=== PATIENT | female | born 1985 ===

== ENCOUNTER 2025-03-25 22:19 | Emergency (ER) | payer MEDICAID, SELFPAY ==
--- NOTE | 2025-03-25 | ECG_ITS ---
Test Reason : AMS Blood Pressure : */* mmHG Vent. Rate : 64 BPM Atrial Rate : 64 BPM P-R Int : 132 ms QRS Dur : 82 ms QT Int : 432 ms P-R-T Axes : 5 35 44 degrees QTcB Int : 445 ms Normal sinus rhythm Normal ECG No previous ECGs available Referred By: Generic ED Physician Electronically Signed By: JIM HIRSCH MD
--- NOTE | ~2025-03-25 | US_ITS ---
EXAMINATION: US OBSTETRICAL ULTRASOUND CLINICAL INFORMATION: Unclear dates COMPARISON: None available. LMP: Unknown. TECHNIQUE: Real-time transabdominal obstetric pelvic ultrasound performed using grayscale and color Doppler technique. FINDINGS: There is a single intrauterine gestational sac with visible yolk sac, embryo/fetus, and cardiac activity. There is no significant subchorionic hemorrhage or hematoma. There is a 2.3 cm heterogeneous isoechoic soft tissue lesion within the myometrium. HR: 152 beats per minute. CRL (crown rump length): 1.76 cm (8 weeks and 2 days +/- 4 days). CESARIO (estimated date of delivery): 11/03/2025 +/- 4 days. MATERNAL ADNEXA: The right maternal ovary measures 3 x 3 x 2 cm. Volume: 10 cc. The left maternal ovary measures 3 x 2 x 3 cm. Volume: 8 cc. No gross solid or cystic lesion in either adnexa. Normal flow on color Doppler interrogation to the ovaries. No maternal pelvic ascites. US/US OB <= 14 weeks fetus IMPRESSION: 1. Single intrauterine gestation with ultrasound gestational age of 8 weeks and 2 days +/- 4 days. 2. Estimated date of delivery is 11/03/2025 +/- 4 days. 3. 2.3 cm uterine fibroid. Electronically signed by: Kevan Walsh MD 03/26/2025 12:18 PM EDT
[2025-03-25 22:22] VITALS: BP 111/46; BP 120/76; PULSE 62; PULSE 63; RESP 17; TEMP 37; O2SAT 94; O2SAT 97; BMI 26.0
[2025-03-25 22:37] VITALS: BP 111/46; PULSE 63; RESP 17; TEMP 37; O2SAT 97
[2025-03-25 22:38] LABS: MANUAL DIFF FLAG NO
[2025-03-25 22:38] LABS: Glucose, Whole Blood 82 mg/dL (60-115)
[2025-03-25 22:42] LABS: Hematocrit 37.2 % (37.0-47.0); Hemoglobin 13.1 g/dl (12.0-16.0); Imm Gran Abs Auto 0.03 X10*3/uL (0.00-0.03); Imm Gran Pct Auto 0.3 % (0.0-0.4); Lymphocytes Absolute Auto 2.5 X10*3/uL (1.2-4.9); Mean Corpuscular HGB Conc 35.2 g/dl (31.0-35.0); Mean Corpuscular Hemoglobin 30.1 pg (27.0-33.0); Mean Corpuscular Volume 85.5 fL (80.0-98.0); NRBC Abs Auto 0.000 X10*3/uL (0.0-0.012); NRBC Pct Auto 0.0 /100WBC (0.0-0.2); Platelet Count 335 X10*3/uL (160-400); Red Blood Count 4.35 X10*6/uL (4.20-5.50); White Blood Count 9.9 X10*3/uL (4.8-10.8)
--- NOTE | 2025-03-25 22:59 | PC.NURSE ---
pt biba, catatonic state. This started a few days ago and she was informed at [facility] she was 2 weeks . Spouse at bedside giving history as pt is unable to verbally respond. Pt responds to verbal commands, able to open mouth for oral temperature. Spouse states this has never happened with previous pregnancies. Pt respirations even and unlabored.
[2025-03-25 23:04] LABS: Alanine Aminotransferase 19 U/L (0-31); Albumin Level 3.9 g/dL (3.5-5.0); Alkaline Phosphatase 50 U/L (39-117); Anion Gap 12 (12-20); Aspartate Amino Transferase 22 U/L (5-31); Blood Urea Nitrogen 8 mg/dL (9-16); Calcium 8.3 mg/dL (8.4-10.2); Carbon Dioxide 19 mmol/L (22-29); Chloride 110 mmol/L (96-108); Creatinine Clr Calc Pharmacy 130.4; Estimated Glomerular Filt Rate > 60; Lipase 20 U/L (8-78); Magnesium 1.8 mg/dL (1.6-2.6); Potassium 3.2 mmol/L (3.3-5.1); Sodium 138 mmol/L (135-145); Total Protein 6.7 g/dL (6.5-8.0)
--- OUTSIDE RECORDS SUMMARY | 2025-03-25 23:12 | XMS_ITS | Encounter Summary ---
Author Organization [employer] [facility] Address [address] [facility] [address] [place] [address] Care Team Providers Care Hand Glove Cleaner Name Role Phone Nannette Canales Primary Care Provider Unavail able Nannette Canales Unavailable Unavailable Mitch Cespedes Unassigned Primary Care Provider U Fritz Castro MD Primary Care Provider [phone] Encounter Details Date Type Department Care Team (Late st Contact Info) Description 09/12/2022 Abstract Sheyla [facility] [address] [place] [address] Dental, Provider, DDS Social History Tobacco Use Types Packs/Day Years Used Date Smoking Tobacco: Never Assessed Comments Unknown Sex and Gender Information Value Date Recorded Sex Assigned at Female 07/28/2022 9:50 AM EDT Legal Sex Female 6:21 PM EDT Gender Identity Female 11/09/2022 11:05 AM EST Sexual Orientation Straight 11/09/2022 11 :05 AM EST documented as of this encounter Plan of Treatment Upcoming Encounters Date Type Department Care Team (Late st Contact Info) Description 04/17/2025 9:00 AM EDT Office Visit [address] [address] Fritz De Anda MD [address] [place] [id number] documented as of this encounter Visit Diagnoses Not on filedocumented in this encounter Care Teams Hand Glove Cleaner Relationship Specialty Start Date End Date Nannette Canales FNP PCP - General Family Medicine 07/22/22 12/26/22 Mitch Cespedes Unassigned PCP - General Family Medicine 12/27/22 04/10/23 Fritz De Anda MD PCP - General Internal Medicine 04/11/23 Nannette Canales FNP Family Medicine 07/22/22 12/26/22 documented as of this encounter
[2025-03-25] MEDS: Lactated Ringers 1,000 ML 999 ML IV (23:15)
[2025-03-25] MEDS: Potassium Chloride/H20 10 MEQ/100 ML PIGGYBACK 100 MEQ IV (23:15)
--- NOTE | 2025-03-25 23:22 | ED_ITS ---
HPI - Psych General Chief Complaint: Altered Mental Status Stated Complaint: Catatonic state, 2 months preg Time Seen by Provider: 03/25/25 22:57 Source: family, EMS and old records reviewed Mode of arrival: EMS Limitations: other (patient is not speaking much yes or nods no ) History of Present Illness ED Provider: JAQUAN HPI Narrative: 39 yo female with no sig PMH has had anxiety/depression for past 2 years due to issues with oldest daughter it has worsened this week and she has had two episodes of catatonia she was seen at [facility] a couple of days ago for same but no crisis consult and they told her she was about 2 months . She has been very depressed and not eating or taking care of herself. Tonight she stopped talking at 630pm but on arrival to ED has been talking to more. No hx of this in past, no therapy, no SI attempts, no meds. complaint: feels depressed and other Onset (ago): year(s) (2) Duration: constant History of same: Yes Relieving factors: none Exacerbating factors: other Context: significant life stressor Associated psychiatric symptoms: depression Associated symptoms: denies other symptoms Treatments prior to arrival: none Related Data Home Medications ?Medication ?Instructions ?Recorded ?Confirmed levothyroxine 75 mcg tablet 75 mcg PO DAILY 03/26/25 0 03/26/25 Previous Rx's ?Medication ?Instructions ?Recorded nitrofurantoin 100 mg PO BID 7 days #14 cap s 03/26/25 monohydrate/macrocrystals 100 mg capsule (Macrobid) Allergies Allergy/AdvReac Type Severity Reaction Status Date / Time No Known Allergies Allergy Verified 03/25/25 22:26 Review of Systems 2 Review of Systems: ROS unable to be obtained due to patient with only one word answers PMFSH Past Medical History Attestation statement: The following information was validated with the patient. Source: old records reviewed Medical History (Updated 03/26/25 @ 19:37 by Ed Wilson MD) No pertinent past medical history Social History Social History (Updated 03/25/25 @ 23:42 by Mari Art DO) Patient Tobacco Use Status: Never used Tobacco Physical Exam 2 Vital Signs: Vital Signs: Last Vital Signs Temp 97.6 F 03/26/25 19:54 Pulse 74 03/26/25 19:54 Resp 16 03/26/25 19:54 BP 118/66 03/26/25 19:54 Pulse Ox 99 03/26/25 19:54 O2 Del Method Room Air 03/26/25 19:54 BMI result Body Mass Index 26.0 Appearance: Alert. tracks with eyes crying at times and then whispers yes or no, no signs of trauma, at bedside and appears very attentive. No acute distress. Eyes: Pupils equal, round and reactive to light. ENT: Pharynx normal. atraumatic Neck: Normal inspection. Neck supple. CVS: Normal heart rate and rhythm. Pulses normal. Respiratory: No respiratory distress. Breath sounds normal. Abdomen: Soft and nontender. Skin: Skin warm and dry. Normal skin color. Normal skin turgor. Extremities: No lower extremity edema. Neuro: Oriented X 3. No motor deficit. No sensory deficit. CN2-12 intact Course Course Course Narrative: S12, IPBS I did order an ultrasound for AM to get accurate dates as they are unknown patient states 2 months but dates are vague Reevaluation(s) Reevaluation #1: Time: 19:54 Date: 03/26/25 Provider: Mari Art DO Physician observation ended at 1953.. Patient to be admitted as inpatient to psychiatry. Medications Administered Discontinued Medications Generic Name Dose Route Start Last Admin Trade Name Freq PRN Reason Stop Dose Admin Amoxicillin 500 mg 03/26/25 03:20 03/26/25 19:39 Amoxicillin 500 Mg Capsule PO 04/02/25 03:19 500 mg TID@0000,0800,1600 MIKHAIL Administration Lactated Ringer's 1,000 mls @ 999 mls/hr 03/25/25 23:07 03/26/25 01:00 Lr IV 03/26/25 00:07 Infused .Q1H1M ONE Infusion Potassium Chloride 10 meq in 100 mls @ 100 mls/hr 03/25/25 23:15 03/26/25 01:15 Potassium Chloride/H20 IV 03/26/25 01:14 Infused Q1H MIKHAIL Infusion Levothyroxine Sodium 75 mcg 03/26/25 06:30 03/26/25 06:00 Levothyroxine Sodium 75 Mcg Tablet PO 75 mcg DAILY@0630 MIKHAIL Administration Medical Decision Making Medical Decision Making MDM Narrative: 39 yo female with no sig PMH has had anxiety/depression for past 2 years due to issues with oldest daughter it has worsened this week and she has had two episodes of catatonia she was seen at [facility] a couple of days ago for same but no crisis consult at this time she has no OB complaints I am going to obtain labs and hydrate and once infused will refer to CARE team. Her agrees. She is not catatonic now and is speaking. She has no other complaints or neuro deficits. Differential Diagnosis Differential Diagnoses: The differential diagnosis associated with the presentation includes depression, anxiety, dehydration Admission/Observation Consideration of admission/observation: Escalation of care including admission/observation considered physician observation started at 1135pm pending CARE team Consult Healthcare Provider Management of the patient was discussed with: Behavioral Health Provider Lab Data [facility] Lab Attestation statement: I reviewed the patient's lab results. started on amoxicillin for UTI TSH elevated but T4 normal 03/25/25 22:34 03/25/25 22:34 Labs: Lab Results 03/25/25 03/25/25 03/26/25 Range/Units 22:31 22:34 01:41 WBC 9.9 (4.8-10.8) X10*3/uL RBC 4.35 (4.20-5.50) X10*6/uL Hgb 13.1 (12.0-16.0) g/dl Hct 37.2 (37.0-47.0) % MCV 85.5 (80.0-98.0) fL MCH 30.1 (27.0-33.0) pg MCHC 35.2 H (31.0-35.0) g/dl RDW 12.9 (11.0-16.0) % Plt Count 335 (160-400) X10*3/uL MPV 9.3 L (9.4-12.3) fL Immature Gran % (Auto) 0.3 (0.0-0.4) % Neut % (Auto) 66.2 (45-73) % Lymph % (Auto) 25.4 (20-40) % [place] % (Auto) 7.0 (2-11) % Eos % (Auto) 0.7 (0-4) % Baso % (Auto) 0.4 (0-2) % Lymph # (Auto) 2.5 (1.2-4.9) X10*3/uL [place] # (Auto) 0.7 (0.1-1.2) X10*3/uL Eos # (Auto) 0.1 (0.0-0.4) X10*3/uL Baso # (Auto) 0.0 (0.0-0.2) X10*3/uL Abs Immat Gran (auto) 0.03 (0.00-0.03) X10*3/uL Absolute Neuts (auto) 6.5 (2.0-8.3) x10*3/uL Absolute Nucleated RBC 0.000 (0.0-0.012) X10*3/uL Nucleated RBC % (auto) 0.0 (0.0-0.2) /100WBC Sodium 138 (135-145) mmol/L Potassium 3.2 L (3.3-5.1) mmol/L Chloride 110 H (96-108) mmol/L Carbon Dioxide 19 L (22-29) mmol/L Anion Gap 12 (12-20) BUN 8 L (9-16) mg/dL Creatinine 0.47 L (0.5-1.4) mg/dL Estim Creat Clear Calc 130.4 Estimated GFR > 60 POC Glucose 82 (60-115) mg/dL Random Glucose 81 (60-115) mg/dL Calcium 8.3 L (8.4-10.2) mg/dL Magnesium 1.8 (1.6-2.6) mg/dL Total Bilirubin 0.4 (0.0-1.0) mg/dL AST 22 (5-31) U/L ALT 19 (0-31) U/L Alkaline Phosphatase 50 (39-117) U/L Total Protein 6.7 (6.5-8.0) g/dL Albumin 3.9 (3.5-5.0) g/dL Lipase 20 (8-78) U/L TSH 9.02 H (0.32-4.0) uIU/mL Free T4 0.87 (0.71-1.85) ng/dL Beta HCG, Quant 46781 mIU/mL Urine Color Urine Appearance Urine pH (5.0-9.0) Ur Specific [place] (1.005-1.025) Urine Protein (Neg-Trace) mg/dL Urine Glucose (UA) (Negative) mg/dL Urine Ketones (Negative) mg/dL Urine Blood (Negative) Urine Nitrite (Negative) Ur Leukocyte Esterase (Negative) Urine RBC (0-2) /HPF Urine WBC (0-5) /HPF Ur Squamous Epith Cells (0-2) /HPF Urine Bacteria (None Seen) Hyaline Casts (0-2) /LPF Urine Test POSITIVE H (NEGATIVE) Urine Opiates Screen (Not Detect) Ur Buprenorphine Scrn (Not Detect) ng/mL Ur Oxycodone Screen (Not Detect) ng/mL Urine Methadone Screen (Not Detect) ng/mL Urine Fentanyl Screen (Not Detect) Ur Barbiturates Screen (Not Detect) Ur Phencyclidine Scrn (Not Detect) Ur Amphetamines Screen (Not Detect) U Benzodiazepines Scrn (Not Detect) Urine Cocaine Screen (Not Detect) U Marijuana (THC) Screen (Not Detect) 03/26/25 Range/Units 01:42 WBC (4.8-10.8) X10*3/uL RBC (4.20-5.50) X10*6/uL Hgb (12.0-16.0) g/dl Hct (37.0-47.0) % MCV (80.0-98.0) fL MCH (27.0-33.0) pg MCHC (31.0-35.0) g/dl RDW (11.0-16.0) % Plt Count (160-400) X10*3/uL MPV (9.4-12.3) fL Immature Gran % (Auto) (0.0-0.4) % Neut % (Auto) (45-73) % Lymph % (Auto) (20-40) % [place] % (Auto) (2-11) % Eos % (Auto) (0-4) % Baso % (Auto) (0-2) % Lymph # (Auto) (1.2-4.9) X10*3/uL [place] # (Auto) (0.1-1.2) X10*3/uL Eos # (Auto) (0.0-0.4) X10*3/uL Baso # (Auto) (0.0-0.2) X10*3/uL Abs Immat Gran (auto) (0.00-0.03) X10*3/uL Absolute Neuts (auto) (2.0-8.3) x10*3/uL Absolute Nucleated RBC (0.0-0.012) X10*3/uL Nucleated RBC % (auto) (0.0-0.2) /100WBC Sodium (135-145) mmol/L Potassium (3.3-5.1) mmol/L Chloride (96-108) mmol/L Carbon Dioxide (22-29) mmol/L Anion Gap (12-20) BUN (9-16) mg/dL Creatinine (0.5-1.4) mg/dL Estim Creat Clear Calc Estimated GFR POC Glucose (60-115) mg/dL Random Glucose (60-115) mg/dL Calcium (8.4-10.2) mg/dL Magnesium (1.6-2.6) mg/dL Total Bilirubin (0.0-1.0) mg/dL AST (5-31) U/L ALT (0-31) U/L Alkaline Phosphatase (39-117) U/L Total Protein (6.5-8.0) g/dL Albumin (3.5-5.0) g/dL Lipase (8-78) U/L TSH (0.32-4.0) uIU/mL Free T4 (0.71-1.85) ng/dL Beta HCG, Quant mIU/mL Urine Color Yellow Urine Appearance Cloudy Urine pH 6.5 (5.0-9.0) Ur Specific [place] 1.020 (1.005-1.025) Urine Protein Trace (Neg-Trace) mg/dL Urine Glucose (UA) Negative (Negative) mg/dL Urine Ketones 80 (Negative) mg/dL Urine Blood Negative (Negative) Urine Nitrite Negative (Negative) Ur Leukocyte Esterase Large (3+) H (Negative) Urine RBC 0-2 (0-2) /HPF Urine WBC >50 H (0-5) /HPF Ur Squamous Epith Cells >20 (0-2) /HPF Urine Bacteria 4+ (None Seen) Hyaline Casts 0-2 (0-2) /LPF Urine Test (NEGATIVE) Urine Opiates Screen Not Detected (Not Detect) Ur Buprenorphine Scrn Not Detected (Not Detect) ng/mL Ur Oxycodone Screen Not Detected (Not Detect) ng/mL Urine Methadone Screen Not Detected (Not Detect) ng/mL Urine Fentanyl Screen Not Detected (Not Detect) Ur Barbiturates Screen Not Detected (Not Detect) Ur Phencyclidine Scrn Not Detected (Not Detect) Ur Amphetamines Screen Not Detected (Not Detect) U Benzodiazepines Scrn Not Detected (Not Detect) Urine Cocaine Screen Not Detected (Not Detect) U Marijuana (THC) Screen Not Detected (Not Detect) Independent Interpretation I performed an independent interpretation of an: EKG Interpretation: Rate: 64 Rhythm: NSR [place]: normal Normal P waves. Normal MARK. Normal QRS complex. ST T wave : inverted t waves V1, no GURWINDER qTC: 445 prior studies: no acute ischemia The study has been interpreted contemporaneously by me. . Independent Historian Clinical information obtained from an independent historian. History obtained from or confirmed by: Spouse and EMS External Record Review External record reviewed: Outpatient record Discharge Plan Discharge Clinical Impression: Anxiety and depression, Acute UTI, First trimester Patient Disposition: Xfer Psychiatric Hosp Transfer Details: Inpatient to [facility] inpatient psych Instructions: Urinary Tract Infection in Women (ED), at 7 to 10 Weeks (ED) Prescriptions: New nitrofurantoin monohyd/m-cryst [Macrobid] 100 mg capsule 100 mg PO BID 7 Days Qty: 14 0RF Rx Instructions: must administer with a meal/food No Action levothyroxine 75 mcg Tablet 75 mcg PO DAILY Interventions: Acute Care Transfer Worksheet (ED) Last Done: 03/26/25 19:54 Discharge Date/Time: 03/26/25 19:57 Print Language: Colombian
--- NOTE | 2025-03-25 23:22 | PC.NURSE ---
pt medicated per MAR, spouse remains at bedside.
[2025-03-26] MEDS: Potassium Chloride/H20 10 MEQ/100 ML PIGGYBACK 100 MEQ IV (00:13)
--- NOTE | 2025-03-26 00:17 | PC.NURSE ---
second bag of Potassium hung. Pt tolerated first bag well. No questions.
--- NOTE | 2025-03-26 00:58 | PC.NURSE ---
care team at bedside, pt making si statements at this time. pt changed over at this time, pt is tearful. med rec completed with pt
[2025-03-26 01:53] LABS: Appearance Urine Cloudy; Glucose Urine UA Negative (Negative); PH 6.5 (5.0-9.0); Specific Gravity - Urine 1.020 (1.005-1.025); UMIC TRIGGER UA YES
[2025-03-26 01:59] LABS: UPreg QC Valid YES
[2025-03-26 02:31] LABS: Cannabinoid Screen Urine Not Detected (Not Detect)
[2025-03-26 03:05] LABS: Free T4 (Free Thyroxine) 0.87 ng/dL (0.71-1.85)
--- NOTE | 2025-03-26 07:21 | PC.NURSE ---
Assumed care of patient at 0645, patient appears to be in no apparent distress this am, resting in bed watching TV, offering no complaints to this RN. Continue plan of care for IPLOC
[2025-03-26 09:03] VITALS: BP 93/64; PULSE 75; RESP 14; TEMP 36.6; O2SAT 99
--- NOTE | 2025-03-26 11:02 | PC.NURSE ---
This Rn spoke to Ultrasound, stating that she will be seen around 1pm for her ultrasound, [place] Tower Loader aware
--- NOTE | 2025-03-26 16:36 | PC.NURSE ---
RE: Transport All paperwork with director community health nursing for transport, plan for ambulance transport to [facility] at 8pm
[2025-03-26 17:17] VITALS: BP 107/56; PULSE 61; RESP 12; TEMP 36.2; O2SAT 98
--- NOTE | 2025-03-26 18:46 | PC.NURSE ---
Patient brought to family room by Cosmetologist Apprentice JEANNINE Blankenship to visit children prior to being transported to [place]
[2025-03-26 19:54] VITALS: BP 118/66; PULSE 74; RESP 16; TEMP 36.4; O2SAT 99
== END 2025-03-26 19:57 ==
PROVIDERS: Emergency Provider Emergency Medicine
DX: O99.341 Other mental disorders complicating pregnancy, first trimester (principal); F32.A Depression, unspecified; F41.8 Other specified anxiety disorders; O23.41 Unspecified infection of urinary tract in pregnancy, first trimester; N39.0 Urinary tract infection, site not specified; Z3A.08 8 weeks gestation of pregnancy; Z79.899 Other long term (current) drug therapy
CPT/HCPCS: 36415; 76801; 80053; 80307; 81001; 81025; 82947; 83690; 83735; 84439; 84443; 84702; 85025; 93005; 96361; 96374; 99285; J3480; J7120; S9485

== ENCOUNTER → 2025-03-25 22:39 | Outpatient (BNV) | payer MEDICAID, SELFPAY | PROVIDERS: Emergency Provider Emergency Medicine; Visit Provider Internal Medicine Cardiovascular Disease | DX: R41.82 Altered mental status, unspecified (principal) | CPT/HCPCS: 93010 ==

== ENCOUNTER → 2025-03-26 12:00 | Outpatient (BNV) | payer MEDICAID, SELFPAY | PROVIDERS: Emergency Provider Emergency Medicine; Visit Provider Radiology Diagnostic Radiology | DX: O26.841 Uterine size-date discrepancy, first trimester (principal); Z3A.08 8 weeks gestation of pregnancy | CPT/HCPCS: 76801 ==

== ENCOUNTER 2025-07-28 12:07 | Emergency (ER) | payer OTHER, SELFPAY ==
[2025-07-28 12:36] VITALS: BP 108/55; PULSE 80; RESP 20; TEMP 36.3; O2SAT 97; BMI 32.8
--- NOTE | 2025-07-28 12:36 | ED_ITS ---
HPI - General Adult General Chief complaint: Upper Respiratory Symptoms Stated complaint: bodyache, sore throat, fever, coughing Time Seen by Provider: 07/28/25 16:00 Source: patient Mode of arrival: ambulatory Limitations: no limitations History of Present Illness ED Provider: [facility] narrative: This is a 39-year-old woman presenting with reports of whitish vaginal discharge and some itching as well as right ear pain, body aches, and sore throat apparently she called her OB and was told to come to emergency department. Has had No nausea, vomiting, diarrhea no vaginal bleeding, reports movement. Takes levothyroxine and vitamins Related Data Home Medications ?Medication ?Instructions ?Recorded ?Confirmed levothyroxine 75 mcg tablet 75 mcg PO DAILY 03/26/25 0 03/26/25 Previous Rx's ?Medication ?Instructions ?Recorded nitrofurantoin 100 mg PO BID 7 days #14 cap s 03/26/25 monohydrate/macrocrystals 100 mg capsule (Macrobid) clindamycin HCl 300 mg capsule 300 mg PO BID 7 days #1 4 caps 07/28/25 (Cleocin HCl) Allergies Allergy/AdvReac Type Severity Reaction Status Date / Time No Known Allergies Allergy Verified 07/28/25 12:37 Review of Systems Constitutional: Constitutional: Reports as per [facility] Past Medical History Medical History (Updated 07/28/25 @ 17:19 by Ron Tsang DO) No pertinent past medical history Social History Social History (Updated 03/25/25 @ 23:42 by Mari Art DO) Patient Tobacco Use Status: Never used Tobacco Advance Directives: No Advance Directives Information Provided: Yes Physical Exam ED Exam Exam: General: ?Appears of stated age ? unable to see tympanic membrane in the right as there is deep ear wax in the way, no external ear infection or tenderness along the mastoid, left TM is visible and normal ? Neck: No lymphadenopathy ? ?CV: RRR, no obvious murmurs appreciated ? ?Resp: ?No wheezing rales rhonchi no stridor moving air well ? Abd: ?Gravid nontender abdomen ? ?MSK: FROM, strength 5/5 all extremities ? Skin: Warm, dry, intact, ? ?Neuro: ?Alert and oriented x3, moving upper and lower extremities symmetrically, no obvious facial asymmetry noted, cranial nerves 2-12 intact Vital Signs: Vital Signs - 24 hr 07/28/25 12:36 Temperature 97.3 F Pulse Rate 80 Respiratory Rate 20 Blood Pressure 108/55 L Pulse Oximetry 97 Oxygen Delivery Method Room Air BMI result Body Mass Index 32.8 Course Course Course Narrative: Rapid medical examination performed in triage by Arlette Anguiano PA-C: Patient is a 39 year old assigned female at presenting to the emergency department with body aches, fever, sore throat, and a cough. Detailed physical exam and review of systems are deferred to the counter professional. Imaging + swabs ordered. Patient placed back in the waiting room pending room availability and results. Medical Decision Making Medical Decision Making [facility] Narrative: 4:36 PM 07/28/2025 (Dr. Ron Tsang): 39-year-old woman with multiple symptoms including body aches sore throat and cough, viral swab is negative, has kids that are sick, she reported right ear appearing to me and I am not able to visualize the tympanic membrane on the right side but there was no discharge and no external redness, I spoke with the patient and I am not going to be clear not her ear as it seems that she has a discomfort I will treat her with appropriate antibiotic, she is also reporting to me but not when she checked in vaginal discharge likely consistent with BV, and she has had UTIs in the past so I am going to check a urine and I am going to run a BV panel otherwise she is well-appearing, heart rate checked by nurses per my request. Her lungs are clear, she is not hypoxic not tachycardic did not feel further workup for pneumonia such as chest x-ray specialist since she is is indicated at this time. I think it would be low utility especially if I would cover her with antibiotics for the ear infection and I will cover most community-acquired bacteria as well. Differential Diagnosis Differential Diagnoses: The differential diagnosis associated with the presentation includes (Pneumonia, otitis media, otitis externa, BV, pyelonephritis, UTI, related issues such as miscarriage etc.) Admission/Observation Consideration of admission/observation: Escalation of care including admission/observation considered Lab Data [facility] Lab Attestation statement: I reviewed the patient's lab results. Labs: Lab Results 07/28/25 07/28/25 Range/Units 13:28 16:13 Urine Color Yellow Urine Appearance Clear Urine pH 6.5 (5.0-9.0) Ur Specific [place] 1.010 (1.005-1.025) Urine Protein Negative (Neg-Trace) mg/dL Urine Glucose (UA) Negative (Negative) mg/dL Urine Ketones Negative (Negative) mg/dL Urine Blood Negative (Negative) Urine Nitrite Negative (Negative) Ur Leukocyte Esterase Small (1+) H (Negative) Urine RBC 0-2 (0-2) /HPF Urine WBC 0-5 (0-5) /HPF Ur Squamous Epith Cells 0-2 (0-2) /HPF Urine Bacteria None Seen (None Seen) Hyaline Casts 0-2 (0-2) /LPF COVID-19 (MIKE) Negative (Negative) COVID-19 Clin Com See Note Influenza Type A (EDWIN) Negative (Negative) Influenza Type B (EDWIN) Negative (Negative) Influenza A & B Note See Note S. pyogenes GrpA EDWIN Negative (Negative) Discharge Plan Discharge Clinical Impression: Otitis media Qualifiers: Otitis media type: unspecified Chronicity: acute Qualified Code(s): H66.90 - Otitis media, unspecified, unspecified ear Additional Instructions: As discussed I am not able to visualize your right ear because there was ear wax, but yet pain there was no drainage, I am going to start you on antibiotic clindamycin 300 mg twice daily for 7 days, this will treat both infection in your ear and bacterial vaginosis Your lungs are clear there was no indication that you require chest x-ray, and your vital signs are reassuring, viral swab is negative heart rate 130s, as your you do need to follow up with the your data power consultant in the next 1-2 days after ER visit Worsening issues concerns come back to the ER As discussed COVID influenza throat swab negative At the time of the your discharge the swab for bacterial vaginosis still pending but based on your symptoms I am going to initiate treatment and we will follow up on your swab if anything else comes back different I will give you a call Prescriptions: New clindamycin HCl [Cleocin HCl] 300 mg capsule 300 mg PO BID 7 Days Qty: 14 0RF No Action levothyroxine 75 mcg Tablet 75 mcg PO DAILY nitrofurantoin monohyd/m-cryst [Macrobid] 100 mg capsule 100 mg PO BID 7 Days Qty: 14 0RF Rx Instructions: must administer with a meal/food Print Language: [place] Island[place]
[2025-07-28 13:56] LABS: COVID-19 Test Negative (Negative); IDNOW Serial# 16C4AD1C
[2025-07-28 13:57] LABS: IDNOW Serial# 152EDE1D; Influenza B2 Negative (Negative)
[2025-07-28 14:06] LABS: IDNOW Serial# 152EDE1D; Strep A Nucleic Acid Negative (Negative)
[2025-07-28 16:21] LABS: Appearance Urine Clear; Glucose Urine UA Negative (Negative); PH 6.5 (5.0-9.0); Specific Gravity - Urine 1.010 (1.005-1.025); UMIC TRIGGER UACC YES
[2025-07-28 16:32] LABS: UACC Culture Trigger YES
--- OUTSIDE RECORDS SUMMARY | 2025-07-28 17:04 | XMS_ITS | Encounter Summary ---
Author Organization [facility] Address [address] [place] [address] Phone Care Team Providers Care Railway Engineer Name Role Phone Deonna Acevedo CNYesi Unavailable Deonna Bowers CNM Unavailable [phone] Gus Tay MD Unavailable Shaniqua Torres NP Unavailable Olivia Chopra MD Unavailable [phone] Judy Gold CNM Unavailable [phone] Unknown, Unknown Primary Care Provider Shira Crawford ROLL OPERATOR Primary Care Provider [phone] Shira Haines ROLL OPERATOR Primary Care Provider [phone] Encounter Details Date Type Department Care Team (Latest Contact Info) Description 12/10/2018 Transcribe Orders [facility] Main [address] [place] [address] Shira Linares, ALDOM [address], [address] [place], [place] [id number] Abnormal glucose tolerance test Social History Tobacco Use Types Packs/Day Years Used Date Smoking Tobacco: Never Smokeless Tobacco: Never Alcohol Use Standard Drinks/Week Comments No 0 (1 standard drink = 0.6 oz pur e alcohol) Comments Yes Sex and Gender Information Value Date Recorded Sex Assigned at Female 12/24/2017 4:25 AM EDT Legal Sex Female 9:13 PM EDT Gender Identity Female 12/24/2017 4:25 AM EDT Sexual Orientation Straight 12/24/2017 4: 25 AM EDT 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 [address] [place] [address] Deonna Acevedo CNM [address] [place] [address], [address] [phone] [email or web address] Deonna Bowers CNM [address] [place] [address], [address] [address] [email or web address] documented as of this encounter Procedures Procedure Name Priority Date/Time Associated Diagnosis Comments GLUCOSE TOLERANCE TEST, 3 HR Routine 12/10/2018 8:37 AM EDT Abnormal glucose tolerance test documented in this encounter Results * (ABNORMAL) Glucose tolerance test, 3 hr (12/10/2018 8:37 AM EDT) FASTING GLUCOSE 71 70 - 110 mg/dL [facility] HR GLUCOSE 140(H) 70 - 99 mg/dL [facility] HR GLUCOSE 109(H) 70 - 99 mg/dL [facility] HR GLUCOSE 103(H) 70 - 99 mg/dL [facility] Blood 12/10/2018 8:37 AM EDT 12/10/2018 8:38 AM EDT us Shira Linares CNM LAB BLOOD BKR ORDERABL ES Final Result [facility] [address] [place] [address] documented in this encounter Visit Diagnoses Diagnosis Abnormal glucose tolerance test Impaired glucose tolerance test documented in this encounter Additional Health Concerns Infection Onset Date Last Indicated Resolved Time CoV-Risk 10/29/2022 10/29/2022 11/09/2022 1:47 AM EST documented as of this encounter Care Teams Railway Engineer Relationship Specialty Start Date End Date Unknown, Unknown, [address] [address] PCP - General 08/22/18 05/09/19 Shira Haines, LORENA [address] [address] PCP - General Family Medicine 05/10/19 04/19/20 [place] [address] [place] [id number] PCP - General [facility] Medicine 04/20/20 Deonna Acevedo CNM [address] [place] [id number] [email or web address] Historical LMR Provider 07/10/17 Deonna Bowers CNM [address] [place] [phone] [email or web address] Historical LMR Provider 07/10/17 Gus Tay MD [address] [place] [phone] [email or web address] Historical LMR Provider 07/10/17 10/02/21 Shaniqua Torres NP [address] [place] [phone] [email or web address] Historical LMR Provider 07/10/17 Olivia hCopra MD [address] [place] [address] Historical LMR Provider 07/10/17 Judy Gold CNM [address] [place] [address] [email or web address] Historical LMR Provider 07/10/17 documented as of this encounter Additional Source Comments The information contained in this document represents components of the legal health record. It is not the complete legal health record.[facility]
--- OUTSIDE RECORDS SUMMARY | 2025-07-28 17:04 | XMS_ITS | Encounter Summary ---
Author Organization [employer] Address [address] [address] [facility] [address] [place] [address] Care Team Providers Care Bank Representative Name Role Phone Fritz De Anda MD Primary Care Provider [phone] Encounter Details Date Type Department Care Team (Late st Contact Info) Description 06/24/2025 Orders Only [facility] [address] [id number] Provider, Not In System Social History Tobacco Use Types Packs/Day Years Used Date Smoking Tobacco: Never Smokeless Tobacco: Never Alcohol Use Standard Drinks/Week Comments Never 0 (1 standard drink = 0.6 oz pur e alcohol) Alcohol Answer Date Recorded How often do you have a drink containing alcohol ? 0 02/13/2024 How many drinks containing a lcohol do you have on a typical day when you are drinking? 0 02/13/2024 How often do you have six or more drinks on one occasion? 0 02/13/2024 Depression Answer Date Recorded Patient Health Questionnaire-9 Score 0 05/01/2025 Patient Health Questionnaire-9 Score 0 05/01/2025 Last PHQ-9: Questionnaire Data Not on file 0 05/01/2025 Housing Stability Answer Date Recorded What is your housing situation today? I have apolonia wu 05/01/[address] you li ve. Do you have problems with any of the following? None of the above 05/01/2025 Food Insecurity Answer Date Recorded Within the past 12 months, y ou worried that your food would run out before you got money to buy more: Never True 05/01/2025 Within the past 12 months,th e food you bought just didn't last and you didn't have enough money to get more: Never True 03/2025 Transportation Answer Date Recorded In the past 12 months, has l ack of transportation kept you from medical appts, meetings, work or from getting things needed for daily living? No 05/01/2025 Intimate Partner Violence Answer Date R ecorded Within the last year, have y ou been afraid of your partner or ex-partner? 2 02/13/2024 Within the last year, have y ou been humiliated or emotionally abused in other ways by your partner or ex-partner? 2 Within the last year, have y ou been kicked, hit, slapped, or otherwise physically hurt by your partner or ex-partner? 2 02/13/2024 Within the last year, have y ou been raped or forced to have any kind of sexual activity by your partner or ex-partner? 2 02/13/2024 Utilities Answer Date Recorded In the past 12 months, has t he electric, gas, oil or water company threatened to shut off services in your home? No 05/01/2025 Depression Answer Date Recorded Patient Health Questionnaire-2 Score 0 05/01/2025 Internet Access Answer Date Recorded Internet Access Q1 Yes 05/01/2025 Internet Access Q2 Not on file 05/01/2025 Comments Yes Sex and Gender Information Value Date Recorded Sex Assigned at Female 07/28/2022 9:50 AM EDT Legal Sex Female 6:21 PM EDT Gender Identity Female 11/09/2022 11:05 AM EST Sexual Orientation Straight 11/09/2022 11 :05 AM EST documented as of this encounter Plan of Treatment Not on file documented as of this encounter Procedures Procedure Name Priority Date/Time Associated Diagnosis Comments HLA CLASS I ANTIBODY, PANEL-REACTIVE ANTIBODY (PRA) Routine 06/02/2025 2:09 PM EDT URINALYSIS, COMPLETE, WITH REFLEX TO CULTURE Routine 06/02/2025 2:08 PM EDT URINALYSIS, COMPLETE, WITH REFLEX TO CULTURE Routine 06/02/2025 2:06 PM EDT CBC WITH AUTO DIFFERENTIAL Routine 06/02/2025 2:04 PM EDT documented in this encounter Results * HLA Class I Antibody, Panel-reactive Antibody (PRA) (06/02/2025 2:09 PM EDT) Blood Venous blood specimen / Unknown us Not In System Provider LAB BLOOD ORDERABLES Edit ed Result - Final * Urinalysis, Complete, with Reflex to Culture (06/02/2025 2:08 PM EDT) Urine us Not In System Provider LAB URINE ORDERABLES Edit ed Result - Final * Urinalysis, Complete, with Reflex to Culture (06/02/2025 2:06 PM EDT) Urine us Not In System Provider LAB URINE ORDERABLES Edit ed Result - Final * CBC auto differential (06/02/2025 2:04 PM EDT) Blood Venous blood specimen / Unknown us Not In System Provider LAB BLOOD ORDERABLES Edit ed Result - Final documented in this encounter Visit Diagnoses Not on filedocumented in this encounter Additional Health Concerns Assessment Noted Time PHQ-9 Depression Total Score: 0 05/01/20 25 9:46 AM EDT documented as of this encounter Care Teams Bank Representative Relationship Specialty Start Date End Date Fritz De Anda MD PCP - General Internal Medicine 04/11/23 documented as of this encounter
--- OUTSIDE RECORDS SUMMARY | 2025-07-28 17:04 | XMS_ITS | Clinical Summary ---
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 PA-C LAB URINE ORDERABLES Final Res ult [address] [address] * (ABNORMAL) LFTs (hepatic panel) (06/02/2025 9:18 AM EDT) ALKALINE PHOSPHATASE 63 39 - 117 U/L [facility] TOTAL BILIRUBIN <0.2 0.0 - 1.2 mg/dL [facility] DIRECT BILIRUBIN <0.1 0.0 - 0.2 mg/dL [facility] Bilirubin (Indirect) NOT CALCULATED 0 - 1.5 mg/dL [facility] AST 15 0 - 37 U/L [facility] ALT 11 0 - 40 U/L [facility] TOTAL PROTEIN 6.0(L) 6.5 - 8.0 g/dL [facility] ALBUMIN 3.2(L) 3.9 - 4.8 g/dL [facility] GLOBULIN 2.8 1 - 4.8 g/dL [facility] A/G Ratio 1.14 1.00 - 4.80 RATIO [facility] Blood 06/02/2025 9:18 AM EDT 06/02/2025 9:30 AM EDT Glenn Pozo PA-C LAB BLOOD BKR ORDERABLES Final Result Performing Organization Address City/State/[facility] Co de Phone Number [address] [address] * (ABNORMAL) CBC and differential (06/02/2025 9:18 AM EDT) WBC 11.60(H) 4.00 - 11.00 K/uL [facility] RBC 3.55(L) 4.00 - 5.20 M/uL [facility] HGB 10.6(L) 12.0 - 16.0 g/dL [facility] HCT 32.7(L) 36.0 - 46.0 % [facility] PLT 283 150 - 450 K/uL [facility] MCV 92.1 80.0 - 100.0 fL [facility] MCH 29.9 27.0 - 31.0 pg [facility] MCHC 32.4 32.0 - 36.0 g/dL [facility] RDW 13.8 11.5 - 14.5 % [facility] MPV 9.7 8.4 - 12.0 fL [facility] NRBC 0.00 0.00 /100 WBCs [facility] ABSOLUTE NRBC 0.00 0.00 K/uL [facility] DIFF METHOD Auto [facility] NEUTS 72.6 48.0 - 76.0 % [facility] LYMPHS 17.8(L) 18.0 - 41.0 % [facility] MONOS 6.5 4.0 - 11.0 % [facility] EOS 1.6 0.0 - 5.0 % [facility] BASOS 0.3 0.0 - 1.5 % [facility] Granulocytes, immature (%) 1.2(H) 0.0 - 0.9 % [facility] ABSOLUTE NEUTS 8.43(H) 1.92 - 7.60 K/uL [facility] ABSOLUTE LYMPHS 2.06 0.72 - 4.10 K/uL [facility] ABSOLUTE MONOS 0.75 0.16 - 1.10 K/uL [facility] ABSOLUTE EOS 0.18 0.00 - 0.50 K/uL [facility] ABSOLUTE BASOS 0.04 0.00 - 0.15 K/uL [facility] Granulocytes, immature 0.14(H) 0.00 - 0.09 K/uL [facility] Blood 06/02/2025 9:18 AM EDT 06/02/2025 9:29 AM EDT Glenn Pozo PA-C LAB BLOOD BKR ORDERABLES Final Result [address] [address] * (ABNORMAL) C-Reactive Protein (06/02/2025 9:18 AM EDT) C REACTIVE PROTEIN 4.8(H) 0.0 - 4.0 mg/L [facility] Blood 06/02/2025 9:18 AM EDT 06/02/2025 9:30 AM EDT Glenn Pozo PA-C LAB BLOOD BKR ORDERABLES Final Result [address] [address] * Lipase (06/02/2025 9:18 AM EDT) LIPASE 31 16 - 63 U/L [facility] Blood 06/02/2025 9:18 AM EDT 06/02/2025 9:30 AM EDT Glenn Pozo PA-C LAB BLOOD BKR ORDERABLES Final Result Performing Organization Address [facility]/ZIP Co de Phone Number [address] [address] * (ABNORMAL) Basic metabolic panel (06/02/2025 9:18 AM EDT) [facility] SODIUM 138 133 - 146 mmol/L [facility] CHLORIDE 106 96 - 108 mmol/L [facility] POTASSIUM 3.4 3.3 - 5.1 mmol/L [facility] CO2 20(L) 21 - 35 mmol/L [facility] BUN 9 6 - 19 mg/dL [facility] CREATININE 0.40(L) 0.5 - 1.5 mg/dL [facility] GLUCOSE 102(H) 70 - 99 mg/dL [facility] CALCIUM 8.6 8.4 - 10.3 mg/dL [facility] EGFR >120 >59 mL/min/1.7 3m2 [facility] Comment:Estimated glomerular filtration rate calculated using the CKD-EPI refit equation. ANION GAP 15 10 - 20 mmol/L [facility] Blood 06/02/2025 9:18 AM EDT 06/02/2025 9:29 AM EDT Glenn Pozo PA-C LAB BLOOD BKR ORDERABLES Final Result [address] [address] * Chlamydia trachomatis and Neisseria gonorrhoeae Nucleic Acid Amplification (05/19/2025 4:19 PM EDT) [facility] CHLAMYDIA TRACHOMATIS Not Detected Not Detected [facility] NEISERIA GONORRHOEAE Not Detected Not Detected [facility] SPECIMEN TYPE URINE [facility] Urine (Urine) 05/19/2025 4:1 9 PM EDT 05/19/2025 6:27 PM EDT Deonna Acevedo [facility] LAB GENERAL ORDERABLES Final Res ult [address] [address] * Pap Test (04/10/2025 12:00 AM EDT) Report [address] [address] Channel Process Supervisor: Rancho De Paz MD HEADMASTER/MISTRESS Cytology Report FINAL DIAGNOSIS A. PAP SMEAR (THIN PREP) CE: SPECIMEN ADEQUACY: Satisfactory for evaluation; transformation zone absent/insufficient . INTERPRETATION: NEGATIVE FOR INTRAEPITHELIAL LESION OR MALIGNANCY. Fungal organisms morphologically consistent with Leonarda species. This specimen was analyzed by the automated ThinPrep Imaging System ([employer] and manually rescreened by a national sales manager and/or pathologist. Electronically Signed Out By: ARINA Randolph(ASCP) The Pap test is a screening test primarily for squamous cancers and precursors and has associated false-negative and false-positive results. New technologies such as liquid-based preparations may decrease but will not eliminate all false-negative results. Regular sampling and follow-up of unexplained clinical signs and symptoms are recommended to minimize false negative results. PROCEDURES/ADDENDA HPV Testing (Requested) Ordered Date: 04/11/2025 A. PAP SMEAR (THIN PREP) CE: High-risk HPV Panel w/ extended genotyping NEG HPV 16-NEG HPV 18-NEG HPV 45-NEG HPV 33/58-NEG HPV 31-NEG HPV 56/59/66-NEG HPV 51-NEG HPV 52-NEG HPV 35/39/68-NEG Performed by real-time polymerase chain reaction (PCR) at [facility], [address] [place] [address] using the FDA-approved BD Onclarity HPV Assay with extended genotyping. Uses of the assay in scenarios other than those approved by the FDA should be considered off-label use. The accuracy and precision of this test for all other off-label specimen sources has been verified in the Cytopathology Laboratory of the [facility] and has not been cleared or approved by the U.S. Food and Drug Administration. Clinical correlation is advised. The assay assesses the E6/E7 DNA target and utilizes human beta globin as an internal control. Cytology and HPV testing are screening assays and should not be used as the sole means of detecting cancer. False-positives and false-negatives can occur. CLINICAL HISTORY Date of Last Menstrual Period: Not Provided Menstrual History: Contraceptive History: IUD Other Clinical Conditions: Screening Pap SPECIMEN SOURCE A: PAP SMEAR (THIN PREP) CE Patient Name: AIDE BOATENG : 1985 (Age: 39) Sex: F Institution: [facility] Location: [facility] Date of Collection: 04/10/2025 Date of Reported: 04/21/2025 11:51 Results to: Taylor Blanton [facility] Final Diagnosis A. PAP SMEAR (THIN PREP) CE: SPECIMEN ADEQUACY: Satisfactory for evaluation; transformation zone absent/insufficient . INTERPRETATION: NEGATIVE FOR INTRAEPITHELIAL LESION OR MALIGNANCY. Fungal organisms morphologically consistent with Leonarda species. This specimen was analyzed by the automated ThinPrep Imaging System ([employer] and manually rescreened by a national sales manager and/or pathologist. [facility] Results\Inte rpretation A. PAP SMEAR (THIN PREP) CE: High-risk HPV Panel w/ extended genotyping NEG HPV 16-NEG HPV 18-NEG HPV 45-NEG HPV 33/58-NEG HPV 31-NEG HPV 56/59/66-NEG HPV 51-NEG HPV 52-NEG HPV 35/39/68-NEG Performed by real-time polymerase chain reaction (PCR) at [facility], [address] [place] [address] using the FDA-approved BD Onclarity HPV Assay with extended genotyping. Uses of the assay in scenarios other than those approved by the FDA should be considered off-label use. The accuracy and precision of this test for all other off-label specimen sources has been verified in the Cytopathology Laboratory of the [facility] and has not been cleared or approved by the U.S. Food and Drug Administration. Clinical correlation is advised. The assay assesses the E6/E7 DNA target and utilizes human beta globin as an internal control. Cytology and HPV testing are screening assays and should not be used as the sole means of detecting cancer. False-positives and false-negatives can occur. [facility] Conversion Type (Conversion Source) 04/10/2025 04/11/2025 8:49 AM EDT us Taylor Blanton CNM CYTOLOGY ORDERABLES Edited Result - Final Performing Organization Address [facility]/ZIP Co de Phone Number [address] [address] * TSH with reflex (04/20/2020 9:58 AM EDT) TSH 0.28 0.27 - 4.20 uIU/mL [facility] Blood 04/20/2020 9:58 AM EDT 04/20/2020 10:05 AM EDT us Amy Hatch MD LAB BLOOD BKR ORDERA BLES Final Result Performing Organization Address [facility]/ZIP Co de Phone Number [address] [address] * Hepatitis C antibody, qualitative (07/02/2018 10:09 AM EDT) HCV Negative Negative [facility] Comment: This is a screening test and should be confirmed with molecular testing Blood 07/02/2018 10:0 9 AM EDT 07/02/2018 10:18 AM EDT us Shaniqua Torres NP LAB BLOOD BKR ORDERABLES Shannon l Result Performing Organization Address [facility]/ZIP Co de Phone Number [address] [address] from Last 3 Months or Most Recently Relevant to Health Maintenance Insurance [facility] [place] [address] [place] [address] [place] [address] [place] [address] ACO [facility] Advance Directives For more information, please contact: [phone] (9AM - 5PM [place], Monday-Monday) * Full Code (Presumed) (Latest Code Status on File) Date Activated Date Inactivated Comments 01/06/2019 11:40 AM 01/08/2019 4:01 PM * Full Code (Presumed) Date Activated Date Inactivated Comments 01/06/2019 10:06 AM 01/06/2019 11:39 AM * Full Code (Presumed) Date Activated Date Inactivated Comments 06/12/2018 4:46 PM 06/13/2018 5:39 PM Care Teams Agricultural Engineering Technicians Relationship Specialty Start Date End Date Shira Haines NP [address] [place] [address] PCP - General Family Medicine 04/20/20 Deonna Acevedo CNM [address] [place] [phone] [email or web address] Historical LMR Provider 07/10/17 Deonna Bowers CNM [address] [place] [address] Historical LMR Provider 07/10/17 Shaniqua Torres NP [address] [place] [phone] [email or web address] Historical LMR Provider 07/10/17 Judy Gold CNM [address] [place] [address] Historical LMR Provider 07/10/17 Additional Source Comments The information contained in this document represents components of the legal health record. It is not the complete legal health record.[facility]
--- OUTSIDE RECORDS SUMMARY | 2025-07-28 17:04 | XMS_ITS | Encounter Summary ---
Author Organization [facility] Address [address] [place] [address] Phone Care Team Providers Care Filter Tank Tender Helper Name Role Phone Deonna Acevedo CNM Unavailable Deonna Bowers CNM Unavailable [phone] Shaniqua Torres LIBRARY MEDIA TECHNICIAN Unavailable [phone] Judy Gold CNM Unavailable [phone] Shira Haines LIBRARY MEDIA TECHNICIAN Primary Care Provider [phone] Encounter Details Date Type Department Care Team (Late st Contact Info) Description 10/29/2022 Procedure Pass [facility], Ct Scan - [address] [address] Social History Tobacco Use Types Packs/Day Years Used Date Smoking Tobacco: Never Smokeless Tobacco: Never Alcohol Use Standard Drinks/Week Comments No 0 (1 standard drink = 0.6 oz pur e alcohol) Comments No Sex and Gender Information Value Date Recorded Sex Assigned at Female 12/24/2017 4:25 AM EDT Legal Sex Female 9:13 PM EDT Gender Identity Female 12/24/2017 4:25 AM EDT Sexual Orientation Straight 12/24/2017 4: 25 AM EDT 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 Wish to be (Past 1 Month) No 023 7:51 PM EST Girma Galindo RN 2. Non-Specific Active Suici lory Thoughts (Past 1 Month) No 10/29/2022 7:51 PM EST Ignacio Galindo RN 6. Suicidal Behavior (Lifetime) No 7:51 PM EST Girma Galindo RN documented as of this encounter Plan of Treatment Upcoming Encounters Date Type Department Care Team (Late st Contact Info) Description 08/15/2025 9:10 AM EST Routine [facility] [address] [place] [phone] Deonna Acevedo CNM [address] [place] [address] Deonna Bowers CNM [address] [place] [address] documented as of this encounter Visit Diagnoses Not on filedocumented in this encounter Additional Health Concerns Infection Onset Date Last Indicated Resolved Time CoV-Risk 10/29/2022 10/29/2022 11/09/2022 1:47 AM EST documented as of this encounter Care Teams Filter Tank Tender Helper Relationship Specialty Start Date End Date Shira Haines NP [address] [address] PCP - General Family Medicine 04/20/20 Deonna Acevedo CNM [address] [place] [address] Historical LMR Provider 07/10/17 Deonna Bowers CNM [address] [place] [phone] [email or web address] Historical LMR Provider 07/10/17 Shaniqua Torres NP [address] [place] [address] [email or web address] Historical LMR Provider 07/10/17 Judy Gold CNM [address] [place] [address], [facility] [address] [place] [address] [email or web address] Historical LMR Provider 07/10/17 documented as of this encounter Additional Source Comments The information contained in this document represents components of the legal health record. It is not the complete legal health record.[facility]
--- OUTSIDE RECORDS SUMMARY | 2025-07-28 17:04 | XMS_ITS | Encounter Summary ---
Author Organization [facility] Address [address] [facility] 7t [place] [address] Care Team Providers Care Raking Machine Operator Name Role Phone Nannette Canales Primary Care Provider Unavail able Nannette Canales Unavailable Unavailable Mitch Cespedes Unarisa Primary Care Provider U amishaailable Fritz De Anda MD Primary Care Provider [phone] Encounter Details Date Type Department Care Team (Latest Contact Info) Description 08/25/2021 Abstract [facility] CONVERSIONS Dental, Provider, DDS Social History Tobacco Use [...] on file documented as of this encounter Visit Diagnoses Not on filedocumented in this encounter Care Teams Raking Machine Operator Relationship Specialty Start Date End Date Nannette Canales FNP PCP - General Family Medicine 07/22/22 12/26/22 Mitch Cespedes Unassigned PCP - General Family Medicine 12/27/22 04/10/23 Fritz De Anda MD PCP - General Internal Medicine 04/11/23 Nannette Canales FNP Family Medicine 07/22/22 12/26/22 documented as of this encounter
--- OUTSIDE RECORDS SUMMARY | 2025-07-28 17:04 | XMS_ITS | Encounter Summary ---
Author Organization [employer] Address [address] 7t [place] [address] Care Team Providers Care Director Of Dietary Name Role Phone Fritz De Anda MD Primary Care Provider [phone] Encounter Details Date Type Department Care Team (Late st Contact Info) Description 05/08/2024 Orders Only [facility] [address] [place], [place] [phone] Provider, Not In System Social History Tobacco [...] more drinks on one occasion? 0 02/13/2024 Housing Stability Answer Date Recorded What is your housing situation today? I have apolonia wu 07/18/[address] you li ve. Do you have problems with any of the following? None of the above 07/18/2023 Food Insecurity Answer Date Recorded Within the past 12 months, y ou worried that your food would run out before you got money to buy more: Never True 07/18/2023 Within the past 12 months,th e food you bought just didn't last and you didn't have enough money to get more: Never True Transportation Answer Date Recorded In the past 12 months, has l ack of transportation kept you from medical appts, meetings, work or from getting things needed for daily living? No 07/18/2023 Intimate Partner Violence Answer Date R ecorded [...] shut off services in your home? No 07/18/2023 Depression Answer Date Recorded Patient Health Questionnaire-2 Score 0 07/18/2023 Comments Unknown Sex and Gender Information Value Date Recorded Sex Assigned at Female 07/28/2022 9:50 AM EDT Legal Sex Female 6:21 PM EDT Gender Identity Female 11/09/2022 11:05 AM EST Sexual Orientation Straight 11/09/2022 11 :05 AM EST documented as of this encounter Plan of Treatment Not on file documented as of this encounter Procedures Procedure Name Priority Date/Time Associated Diagnosis Comments CBC AND DIFFERENTIAL - WAM AND NON-WAM Routine 05/07/2024 8:25 AM EDT documented in this encounter Results * CBC and differential (05/07/2024 8:25 AM EDT) Blood Venous blood specimen / Unknown us Not In System Provider LAB BLOOD ORDERABLES Edit ed Result - Final documented in this encounter Visit Diagnoses Not on filedocumented in this encounter Care Teams Director Of Dietary Relationship Specialty Start Date End Date Fritz De Anda MD PCP - General Internal Medicine 04/11/23 documented as of this encounter
--- OUTSIDE RECORDS SUMMARY | 2025-07-28 17:04 | XMS_ITS | Encounter Summary ---
Author Organization [employer] Address [address] [place] [address] Care Team Providers Care Wet Process Miller Name Role Phone Fritz De Anda MD Primary Care Provider [phone] Encounter Details Date Type Department Care Team (Late st Contact Info) Description 03/18/[address] [facility] [address] [place] [address] Fritz De Anda MD [address] [place], [place] [phone] Social History Tobacco Use Types Packs/Day Years [...] AM EST documented as of this encounter Miscellaneous Notes * Telephone Encounter - Nicole Mathew - 03/18/2025 10:23 AM EDT Patient is scheduled for a follow up with Dr. De Anda on April 17 at 9:00 am. documented in this encounter Plan of Treatment Not on file documented as of this encounter Visit Diagnoses Not on filedocumented in this encounter Care Teams Wet Process Miller Relationship Specialty Start Date End Date Fritz De Anda MD PCP - General Internal Medicine 04/11/23 documented as of this encounter
--- OUTSIDE RECORDS SUMMARY | 2025-07-28 17:04 | XMS_ITS | Encounter Summary ---
Author Organization [employer] Address [address] [facility] [address] [facility] [address] [place] [address] Care Team Providers Care Industry Analyst Name Role Phone Fritz De Anda MD Primary Care Provider Encounter Details Date Type Department Care Team (Late st Contact Info) Description 04/21/2025 Telephone [facility] [address] [place] [address] Fritz De Anda MD [address] [place], [place] [phone] Social History Tobacco Use Types Packs/Day Years [...] * Telephone Encounter - Nicole Mathew - 04/21/2025 12:23 PM EDT Patient has an appt with Dr. De Anda on 05/01 at 9:20. documented in this encounter Plan of Treatment Not on file documented as of this encounter Visit Diagnoses Not on filedocumented in this encounter Care Teams Industry Analyst Relationship Specialty Start Date End Date Fritz De Anda MD PCP - General Internal Medicine 04/11/23 documented as of this encounter
--- OUTSIDE RECORDS SUMMARY | 2025-07-28 17:04 | XMS_ITS | Encounter Summary ---
Author Organization [employer] Address [address] [facility] 7t [place] [address] Care Team Providers Care Retail Clerk Name Role Phone Nannette Canales Primary Care Provider Unavail able Nannette Canales Unavailable Unavailable Mitch Cespedes Primary Care Provider U amishaailable Fritz De Anda MD Primary Care Provider Encounter Details Date Type Department Care Team (Late st Contact Info) Description 09/12/2022 Abstract [facility] Dental [address] [place] [address] Dental, Provider, DDS Social History Tobacco Use [...] on filedocumented in this encounter Care Teams Retail Clerk Relationship Specialty Start Date End Date Nannette Canales FNP PCP - General Family Medicine 07/22/22 12/26/22 Mitch Cespedesssigned PCP - General Family Medicine 12/27/22 04/10/23 Fritz De Anda MD PCP - General Internal Medicine 04/11/23 Nannette Canales FNP Family Medicine 07/22/22 12/26/22 documented as of this encounter
--- OUTSIDE RECORDS SUMMARY | 2025-07-28 17:04 | XMS_ITS | Encounter Summary ---
Author Organization [employer] Address [address] [facility] 7[address] [place] [address] Care Team Providers Care Legal Director Name Role Phone Fritz De Anda MD Primary Care Provider [phone] Encounter Details Date Type Department Care Team (Late st Contact Info) Description 06/17/2025 Orders Only [facility] [address] [phone] Provider, Not In System Social History Tobacco [...] Procedure Name Priority Date/Time Associated Diagnosis Comments CULTURE, URINE, ROUTINE Routine 06/02/2025 11:22 AM EDT documented in this encounter Results * Culture, Urine, Routine (06/02/2025 11:22 AM EDT) Urine us Not In System Provider LAB MICROBIOLOGY - GENERA L ORDERABLES Edited Result - Final documented in this encounter Visit Diagnoses Not on filedocumented in this encounter Additional Health Concerns Assessment Noted Time PHQ-9 Depression Total Score: 0 05/01/20 25 9:46 AM EDT documented as of this encounter Care Teams Legal Director Relationship Specialty Start Date End Date Fritz De Anda MD PCP - General Internal Medicine 04/11/23 documented as of this encounter
--- OUTSIDE RECORDS SUMMARY | 2025-07-28 17:04 | XMS_ITS | Clinical Summary ---
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 Name Role Phone Fritz De Anda MD Primary Care Provider [phone] Allergies Active Allergy Reactions Criticality Noted Date Comments Hydrocodone-Acetaminophen Syncope 10/02/2012 Other reaction(s): faint Morphine Unknown 10/23/2013 Other reaction(s): itching hands- see note 10/23/13 Note: may be either morphine or zofran Other reaction(s): itching hands- see note 10/23/13 Note: may be either morphine or zofran Other reaction(s): itching hands- see note 10/23/13 Note: may be either morphine or zofran Other reaction(s): itching hands- see note 10/23/13 Note: may be either morphine or zofran Ondansetron Unknown 10/23/2013 Other reaction(s): itching hands- see 10/23/13 note Note: May be either zofran or morphine Other reaction(s): itching hands- see 10/23/13 note Note: May be either zofran or morphine Other reaction(s): itching hands- see 10/23/13 note Note: May be either zofran or morphine Other reaction(s): itching hands- see 10/23/13 note Note: May be either zofran or morphine Medications MV-Min-Fe Fum-FA-DHA ( 1 PO) Take 1 tablet by mouth Once per day. Active levothyroxine (Synthroid, Levoxyl) 125 MCG tablet Take 0.5 tablets (62.5 mcg) by mouth before breakfast. 45 tablet 3 05/01/2025 Active Active Problems Problem Noted Date Diagnosed Date Adjustment disorder with depressed mood 03/27/20 25 Overview (05/01/2025): Discharge dx given to pt after inpatient admission at [facility] for SI From SW during hospitalization: The [...] Both Abilify and escitalopram were effectively discontinued Patellofemoral arthralgia of left knee Chronic left-sided low back pain with left-sided sciatica 02/13/2024 Lateral epicondylitis, left elbow 07/18/2023 Assessment & Plan (07/18/2023 2:44 PM EDT): Exercises, diclofenac and tennis elbow brace for pain. 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 Hyperlipidemia 08/20/2013 Overview (11/09/2022): Note: Unchanged Elevation of level of transa minase and lactic acid dehydrogenase (LDH) 08/20/2013 Overview (11/09/2022): Note: Unchanged Subclinical hypothyroidism 10/02/2012 Overview (05/01/2025): Taking levothyroxine 62mcg -Newly diagnosed (TSH>4.0): TSH [...] factors (infertility, miscarriage history, and TPO antibodies) Comments Yes Encounters Date Type Department Care Team Description 06/24/2025 Orders Only [place] [email or web address] [facility] [address] [place] [address] Provider, Not In System 06/17/2025 Orders Only [place] [email or web address] [facility] [address] [place] [address] Provider, Not In System 05/13/2025 Results Follow-Up [address] [phone] Fritz De Anda MD TSH with Reflex to Free T4, Comprehensive Metabolic Panel 05/01/2025 9:20 AM EDT Office Visit [address] [address] Fritz De Anda MD Depression screening negative [Z13.31] (Primary Dx); Subclinical hypothyroidism; Elevated LFTs; Normal in second trimester; Dyslipidemia from Last 3 Months Immunizations Immunization Administration Dates Next Due Influenza injectable quadriv alent IIV4 with preservative 09/28/2015,06/24/2014 Influenza injectable quadriv alent preservative free 06/20/2019,08/27/2018,08/20/2013 Tdap 12/03/2018,03/09/2017 Social History Tobacco Use Types Packs/Day Years Used Date Smoking Tobacco: Never Smokeless Tobacco: Never Tobacco Cessation:Counseling Given: Not Answered Alcohol Use Standard Drinks/Week Comments Never 0 [...] your housing situation today? I have apolonia jazmin 05/01/[address] you li [...] Q2 Not on file 05/01/2025 Comments Yes Intention Date Recorded Ambivalent about becoming (find ing) 05/01/2025 Sex and Gender Information Value Date Recorded Sex Assigned at Female 07/28/2022 9:50 AM EDT Legal Sex Female 6:21 PM EDT Gender Identity Female 11/09/2022 11:05 AM EST Sexual Orientation Straight 11/09/2022 11 :05 AM EST Last Filed Vital Signs Vital Sign Reading Time Taken Comments Blood Pressure 103/63 05/01/2025 9:40 AM EDT Pulse 79 05/01/2025 9:40 AM EDT Temperature 36.3 C (97.3 F) 01/16/2025 9:26 AM EDT Respiratory Rate - - Oxygen Saturation 99% 05/01/2025 9:40 AM EDT Inhaled Oxygen Concentration - - Weight 61.2 kg (135 lb) 05/01/2025 9:40 AM EDT Height 147.3 cm (4' 10 ) 05/01/2025 9:40 AM EDT Body Mass Index 28.22 05/01/2025 9:40 AM EDT Plan of Treatment Health Maintenance Due Date Last Done Comments Disability Screening 1985 HPV Vaccines (1 - 3-dose series) 2000 Hepatitis B Vaccines (1 of 3 - 19+ 3-dose series) 2004 Dental X-Ray: Bitewings 12/15/2021 12/14/2020, 10/05 Dental Oral Exam 02/24/2022 08/25/2021, , 10/05/2020 Dental Prophylaxis 02/24/2022 08/25/2021, 02/15/2021 Dental X-Ray: Full Mouth 12/16/2023 12/14/2020, 09/25 COVID-19 Vaccine ( season) 2025 Influenza Vaccine (#1) 2025 9, 08/27/2018, 09/28/2015, Additional history exists Tobacco Screening 01/16/2026 01/16/2025 Alcohol/Substance Use Screening 05/01/2026 05/01/2025 Depression Screening 05/01/2026 05/01/2025, 05/01/20 Family Planning (PISQ) 05/01/2026 05/01/2025 SDOH Screening 05/01/2026 05/01/2025 Cervical Cancer Screening 06/08/2026 HPV/Cotest 06/08/2026 06/08/2021 Pap Smear 06/08/2026 06/08/2021 DTaP/Tdap/Td Vaccines (3 - Td or Tdap) 12/03/2028 12/03/2018, 03/09/2017 Lipid Panel 02/12/2029 02/13/2024 Zoster Vaccines (1 of 2) 2035 RSV Patients and Patients Aged 60 years or older (1 - 1-dose 75+ series) 2060 HIV Screening Completed 02/13/2024, 02/25/2020 Hepatitis C Screening Completed 02/13/2024 HIB Vaccines Aged Out No longer eligi ble based on patient's age to complete this topic Hepatitis A Vaccines Aged Out No long er eligible based on patient's age to complete this topic IPV Vaccines Aged Out No longer eligi ble based on patient's age to complete this topic Meningococcal B Vaccine Aged Out No l onger eligible based on patient's age to complete this topic Meningococcal Vaccine Aged Out No georgia claudia eligible based on patient's age to complete this topic Pneumococcal Vaccine: Pediatrics (0 to 5 Years) and At-Risk Patients (6 to 49) Years Aged Out No longer eligible based on patient's age to complete this topic RSV under 20 months Aged Out No longe r eligible based on patient's age to complete this topic Rotavirus Vaccines Aged Out No longer eligible based on patient's age to complete this topic Procedures Procedure Name Priority Date/Time Associated Diagnosis Comments HLA CLASS I ANTIBODY, PANEL-REACTIVE ANTIBODY (PRA) Routine 06/02/2025 2:09 PM EDT URINALYSIS, COMPLETE, WITH REFLEX TO CULTURE Routine 06/02/2025 2:08 PM EDT URINALYSIS, COMPLETE, WITH REFLEX TO CULTURE Routine 06/02/2025 2:06 PM EDT CBC WITH AUTO DIFFERENTIAL Routine 06/02/2025 2:04 PM EDT CULTURE, URINE, ROUTINE Routine 06/02/2025 11:22 AM EDT COMPREHENSIVE METABOLIC PANEL Routine 05/01/2025 10:12 AM EDT Subclinical hypothyroidism Elevated LFTs TSH W/REFLEX TO FT4 Routine 05/01/2025 1 0:12 AM EDT Subclinical hypothyroidism HEPATITIS C AB W/REFL TO HCV RNA, QN, PCR Routine 02/13/2024 3:26 PM EDT Screen for STD (sexually transmitted disease) HIV 1/2 ANTIGEN/ANTIBODY, FOURTH GENERATION W/RFL Routine 02/13/2024 3:26 PM EDT Screen for STD (sexually transmitted disease) LIPID PANEL, STANDARD Routine 02/13/2024 3:26 PM EDT Screening cholesterol level PROPHYLAXIS - ADULT Routine 08/25/2021 1 2:00 AM EST PERIODIC ORAL EVALUATION - ESTABLISHED PATIENT Routine 08/25/2021 12:00 AM EST THIN PREP PAP, WITH HPV, GENOTYPE IF HPV+ Routine 06/08/2021 12:56 AM EDT INTRAORAL - COMPLETE SERIES OF RADIOGRAPHIC IMAGES Routine 12/14/2020 12:00 AM EDT from Last 3 Months or Most Recently Relevant to Health Maintenance Results * HLA Class I Antibody, Panel-reactive Antibody (PRA) (06/02/2025 2:09 PM EDT) Blood Venous blood specimen / Unknown us Not In System Provider LAB BLOOD ORDERABLES Edit ed Result - Final * Urinalysis, Complete, with Reflex to Culture (06/02/2025 2:08 PM EDT) Only the most recent of2 resultswithin the time period is included. Urine us Not In System Provider LAB URINE ORDERABLES Edit ed Result - Final * CBC auto differential (06/02/2025 2:04 PM EDT) Blood Venous blood specimen / Unknown us Not In System Provider LAB BLOOD ORDERABLES Edit ed Result - Final * Culture, Urine, Routine (06/02/2025 11:22 AM EDT) Urine Not In System Provider LAB MICROBIOLOGY - GENERA L ORDERABLES Edited Result - Final * TSH with Reflex to Free T4 (05/01/2025 10:12 AM EDT) TSH w/Reflex to FT4 4.16 mIU/L [facility] Comment: Reference Range > or = 20 Years 0.40-4.50 Ranges First trimester 0.26-2.66 Second trimester 0.55-2.73 Third trimester 0.43-2.91 Blood Venous blood specimen / Unknown 05/01/2025 10:12 AM EDT 05/01/2025 10:13 AM EDT Narrative [facility] - 05/02/2025 11:55 AM EDT FASTING:NO FASTING: NO Fritz De Anda MD LAB BLOOD ORDERABLES Final Res ult [facility] [address], [place] [address] [facility] [address] [place] [address] * (ABNORMAL) Comprehensive Metabolic Panel (05/01/2025 10:12 AM EDT) Glucose 80 65 - 139 mg/dL [facility] Comment: Non-fasting reference interval Urea Nitrogen (BUN) 6(L) 7 - 25 mg/dL [facility] Creatinine, Serum 0.39(L) 0.50 - 0.97 mg/dL [facility] eGFR 130 > OR = 60 mL/min/1. 73m2 [facility] BUN/Creatinine Ratio 15 6 - 22 (calc) [facility] Sodium 136 135 - 146 mmol/L [facility] Potassium 3.8 3.5 - 5.3 mmol/L [facility] Chloride 105 98 - 110 mmol/L [facility] [employer] [facility] Carbon Dioxide 21 20 - 32 mmol/L [facility] [employer] [facility] Calcium 9.3 8.6 - 10.2 mg/dL [facility] [employer] [facility] Protein, Total 6.8 6.1 - 8.1 g/dL [facility] [facility] Albumin 3.8 3.6 - 5.1 g/dL [facility] [facility] Globulin 3.0 1.9 - 3.7 g/dL (calc) [facility] Albumin/Globuli n Ratio 1.3 1.0 - 2.5 (calc) [facility] Bilirubin, Total 0.3 0.2 - 1.2 mg/dL [facility] Alkaline Phosphatase 47 31 - 125 U/L [facility] AST 19 10 - 30 U/L [facility] ALT 19 6 - 29 U/L [facility] Blood Venous blood specimen / Unknown 05/01/2025 10:12 AM EDT 05/01/2025 10:13 AM EDT Narrative [facility] - 05/02/2025 11:55 AM EDT FASTING:NO FASTING: NO us Fritz De Anda MD LAB BLOOD ORDERABLES Final Res ult [facility] [address], [place] [address] [facility] [place] [facility] [address] [place] [address] * Hepatitis C Antibody with Reflex to HCV, RNA, Quantitative, Real-Time PCR (02/13/2024 3:26 PM EDT) Hepatitis C Antibody NON-REACT CHANEL NON-REACT CHANEL [facility] [place] [facility] Comment: HCV antibody was non-reactive. There is no laboratory evidence of HCV infection. In most cases, no further action is required. However, if recent HCV exposure is suspected, a test for HCV RNA (test code 09518) is suggested. For additional information please refer to http://education.[employer]/faq/RSO26u5 (This link is being provided for informational/ educational purposes only.) Blood Venous blood specimen / Unknown 02/13/2024 3:26 PM EDT 02/13/2024 3:27 PM EDT Fritz De Anda MD LAB BLOOD ORDERABLES Final Res ult Performing Organization Address City/[facility]/ZIP Co de Phone Number [facility] [address], [facility] [place] [address] [facility] [place] [facility] [address] [place] [address] * HIV-1/2 Antigen and Antibodies, Fourth Generation, with Reflexes (02/13/2024 3:26 PM EDT) [facility] HIV Antigen/Antibody, 4th Generation NON-REAC TIVE NON-REAC TIVE [facility] [place] [facility] [employer] [facility] Comment: HIV-1 antigen and HIV-1/HIV-2 antibodies were not detected. There is no laboratory evidence of HIV infection. PLEASE NOTE: This information has been disclosed to you from records whose confidentiality may be protected by state law. If your state requires such protection, then the state law prohibits you from making any further disclosure of the information without the specific written consent of the person to whom it pertains, or as otherwise permitted by law. A general authorization for the release of medical or other information is NOT sufficient for this purpose. For additional information please refer to http://education.[employer]/faq/SGU370 (This link is being provided for informational/ educational purposes only.) The performance of this assay has not been clinically validated in patients less than 2 years old. Blood Venous blood specimen / Unknown 02/13/2024 3:26 PM EDT 02/13/2024 3:27 PM EDT Fritz De Anda MD LAB BLOOD ORDERABLES Final Res ult [facility] [address], [facility] [place] [address] [facility] [place] [facility] [address] [place] [address] * (ABNORMAL) Lipid Panel, Standard (02/13/2024 3:26 PM EDT) Pathologist [facility] Cholesterol, Total 201(H) <200 mg/dL [facility] [place] [facility] HDL Cholesterol 50 > OR = 50 mg/dL [facility] [place] [facility] Triglycerides 156(H) <150 mg/dL [facility] [place] [facility] LDL Cholesterol 124(H) mg/dL [facility] [place] [facility] Comment: Reference range: <100 Desirable range <100 mg/dL for primary prevention; <70 mg/dL for patients with CHD or diabetic patients with > or = 2 CHD risk factors. LDL-C is now calculated using the Shelton calculation, which is a validated novel method providing better accuracy than the Friedewald equation in the estimation of LDL-C. Jeffry TOTH et al. PETTY. 2013;310(19): 2983-8720 (http://education.[employer]/faq/GIX185) Chol/HDLC Ratio 4.0 <5.0 (calc) [facility] [place] [facility] Non-HDL Cholesterol 151(H) <130 mg/dL [facility] [place] [facility] Comment: For patients with diabetes plus 1 major ASCVD risk factor, treating to a non-HDL-C goal of <100 mg/dL (LDL-C of <70 mg/dL) is considered a therapeutic option. Blood Venous blood specimen / Unknown 02/13/2024 3:26 PM EDT 02/13/2024 3:27 PM EDT us Fritz De Anda MD LAB BLOOD ORDERABLES Final Res ult [facility] [address] [place] [address] [facility] [address] [place] [address] * THIN PREP PAP, WITH HPV, GENOTYPE IF HPV+ (06/08/2021 12:56 AM EDT) [facility] See Report [facility] 06/08/2021 12:5 6 AM EDT us Historical Provider LAB CYTOLOGY ORDERABLES F inal Result [facility] [address] from Last 3 Months or Most Recently Relevant to Health Maintenance Insurance 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
--- OUTSIDE RECORDS SUMMARY | 2025-07-28 17:04 | XMS_ITS | Encounter Summary ---
Author Organization [facility] Address [address] [place] [address] Care Team Providers Care Pricing Associate Name Role Phone Nannette Canales Primary Care Provider Unavail able Nannette Canales Unavailable Unavailable Mitch Cespedes Unarisa Primary Care Provider U amishaailable Fritz De Anda MD Primary Care Provider [phone] Encounter Details Date Type Department Care Team (Latest Contact Info) Description 12/14/2020 Abstract [facility] CONVERSIONS Dental, Provider, DDS Social [...] on filedocumented in this encounter Care Teams Pricing Associate Relationship Specialty Start Date End Date Nannette Canales FNP PCP - General Family Medicine 07/22/22 12/26/22 Mitch Cespedes Unassigned PCP - General Family Medicine 12/27/22 04/10/23 Fritz De Anda MD PCP - General Internal Medicine 04/11/23 Nannette Canales FNP Family Medicine 07/22/22 12/26/22 documented as of this encounter
[2025-07-28 17:43] VITALS: BP 108/55; PULSE 80; RESP 20; TEMP 36.3; O2SAT 97
[2025-07-29 00:24] LABS: Bacterial Vaginosis PCR NEGATIVE (Negative); Candida Group PCR DETECTED (Not Detect); Candida glab krusei PCR NOT DETECTED (Not Detect); Trichomonas vaginalis PCR NOT DETECTED (Not Detect)
== END 2025-07-28 17:43 | disposition home or self-care (01) ==
PROVIDERS: Physician Assistant Medical; Emergency Provider Emergency Medicine
DX: O26.899 Other specified pregnancy related conditions, unspecified trimester (principal); O09.519 Supervision of elderly primigravida, unspecified trimester; H66.91 Otitis media, unspecified, right ear; B37.31 Acute candidiasis of vulva and vagina; J02.9 Acute pharyngitis, unspecified; R50.9 Fever, unspecified; R05.9 Cough, unspecified; Z03.818 Encounter for observation for suspected exposure to other biological agents ruled out
CPT/HCPCS: 81001; 81515; 87086; 87502; 87635; 87651; 99282; 99283